=== PATIENT | female | born 1945 | race Caucasian/White ===

== ENCOUNTER 2021-04-06 16:59 | Emergency (ER) | payer MEDICARE ==
[~2021-04-06] VITALS: Ht 167.6 cm; Wt 66.4 kg
[2021-04-06 17:04] VITALS: BP 167/127
[2021-04-06] MEDS ORDERED: TETanus/Pertussis (Acell)/Diphther VAC/PF (Tdap-Adult) 0.5ml syringe IMVAC ONE (17:10)
== END 2021-04-06 18:38 | disposition home or self-care (01) ==
LOC: ER 17:00
DX: S61.214A Laceration without foreign body of right ring finger without damage to nail, initial encounter (principal); Z20.3 Contact with and (suspected) exposure to rabies; Z87.442 Personal history of urinary calculi; X58.XXXA Exposure to other specified factors, initial encounter; Y93.89 Activity, other specified; Y92.89 Other specified places as the place of occurrence of the external cause; Y99.8 Other external cause status
CPT/HCPCS: 90471; 90715; 99283

== ENCOUNTER 2023-08-12 07:43 | Emergency (ER) | payer MEDICARE ==
[~2023-08-12] VITALS: Ht 167.6 cm; Wt 70.1 kg
[2023-08-12 10:18] VITALS: BP 166/74; PULSE 53; RESP 16; O2SAT 98
[2023-08-12 11:10] VITALS: TEMP 97.7
== END 2023-08-12 11:12 | disposition home or self-care (01) ==
LOC: ER 07:43
DX: S52.615A Nondisplaced fracture of left ulna styloid process, initial encounter for closed fracture (principal); Z87.442 Personal history of urinary calculi; W18.09XA Striking against other object with subsequent fall, initial encounter; Z91.81 History of falling; Y93.89 Activity, other specified; Y92.89 Other specified places as the place of occurrence of the external cause; Y99.8 Other external cause status
CPT/HCPCS: 29125; 73110; 99284; A4565